=== PATIENT | male | born 1990 | race Two or more races ===

== ENCOUNTER 2021-02-07 18:22 | Emergency (ER) | payer MEDICAID ==
[2021-02-07] MEDS ORDERED: Ketorolac 30 MG/ML SDV IM ONE (18:45)
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
[2021-02-07] MEDS ORDERED: Sodium Chloride 0.9% 10 ML Syringe FLUSH PRN (20:12)
[2021-02-07] MEDS ORDERED: Lactated Ringers 1,000 ML IV ONE (20:12)
--- NOTE | 2021-02-09 10:49 | CR ---
Wrist Comp Min 3V Bi CLINICAL HISTORY: Fall FINDINGS: There is no acute fracture or dislocation within the right wrist. Impression negative
== END 2021-02-07 22:26 ==
LOC: JP.ED 18:22
DX: F19.20 Other psychoactive substance dependence, uncomplicated (principal); Z20.822 Contact with and (suspected) exposure to COVID-19
CPT/HCPCS: 36415; 73110; 80053; 80305; 80307; 85025; 87635; 96372; 99284; J1885; J7120; U0002

== ENCOUNTER 2021-02-11 23:40 | Emergency (ER) | payer MEDICAID ==
[2021-02-12] MEDS ORDERED: Famotidine 20 MG Tab PO ONE (00:34)
[2021-02-12] MEDS ORDERED: Famotidine 20 MG Tab ONE (00:45)
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
== END 2021-02-12 03:49 | disposition home or self-care (01) ==
LOC: JP.ED 23:40
DX: R07.89 Other chest pain (principal); Z72.0 Tobacco use; Z86.59 Personal history of other mental and behavioral disorders
CPT/HCPCS: 36415; 80053; 80307; 84484; 85025; 99285; A9270